=== PATIENT | male | born 1945 | race Caucasian/White ===

== ENCOUNTER 2022-03-11 10:50 | Inpatient (IN) ==
[2022-03-11 11:56] LABS: Hematocrit 46 % (42-52); Hemoglobin 15.1 g/dL (14.0-18.0); Mean Corpuscular HGB Conc 33 g/dL (31-36); Mean Corpuscular Hemoglobin 31 pg (27-31); Mean Corpuscular Volume 95 fL (80-94); Red Blood Count 4.84 10^6 /uL (4.18-5.48); Red Cell Distribution Width 16 % (10-15); White Blood Count 15.9 10^3/uL (3.5-10.8)
[2022-03-11 12:12] LABS: High Sens Troponin Baseline 25 pg/mL (<20)
[2022-03-11 12:40] LABS: ALT 59 U/L (7-52); AST 18 U/L (13-39); Albumin 3.3 g/dL (3.2-5.2); Albumin/Globulin Ratio 1.3 (1-3); Alkaline Phosphatase 54 U/L (35-149); Anion Gap 6 mmol/L (2-11); Blood Urea Nitrogen 72 mg/dL (6-24); CO2 Carbon Dioxide 27 mmol/L (22-32); Calcium 8.3 mg/dL (8.6-10.3); Chloride 111 mmol/L (101-111); Globulin 2.5 g/dL (2-4); Glucose 79 mg/dL (70-100); Potassium 4.3 mmol/L (3.5-5.0); Sodium 144 mmol/L (135-145); Total Protein 5.8 g/dL (6.4-8.9); eGFR CKD-EPI 38.8 (>60)
[2022-03-11 13:21] LABS: ABS Basophils 0.1 10^3/ul (0-0.2); ABS Lymphocytes 0.9 10^3/ul (1.0-4.8); ABS Monocytes 1.6 10^3/ul (0-0.8); ABS Neutrophils 13.3 10^3/ul (1.5-7.7); Eosinophil % 0.2 %; Lymphocyte % 5.9 %; Mean Platelet Volume 10.4 fL (7.4-10.4); Nucleated Red Blood Cells % 0.1; Platelet Count 93 10^3/uL (150-450)
[2022-03-11 13:26] LABS: High Sensitivity Troponin 1 Hr 26 pg/mL (<20)
[2022-03-11 16:31] LABS: C Reactive Protein < 1.00 mg/L (<8.01)
[2022-03-11] MEDS ORDERED: Bumetanide IV 0.25 MG/ML 4 ml VIAL (1 mg) SLOW PUSH ONE (17:47)
[2022-03-11 18:14] LABS: Creatine Kinase 107 U/L (10-223)
[2022-03-11 18:29] LABS: TSH Ultra Thyroid Stim Horm 0.05 mcIU/mL (0.34-5.60)
[2022-03-11 18:40] LABS: Folate > 20.00 ng/mL (5.90-24.80)
[2022-03-11 18:41] LABS: Vitamin B12 666 pg/mL (180-914)
[2022-03-11 19:44] LABS: Urine Appearance Cloudy; Urine Bilirubin Negative (Negative); Urine Blood 1+ (Negative); Urine Color Yellow; Urine Glucose Negative (Negative); Urine Ketones Negative (Negative); Urine Nitrite Negative (Negative); Urine Protein 1+(30 mg/dL) (Negative); Urine Specific Gravity 1.014 (1.002-1.030); Urine Urobilinogen Negative (Negative)
[2022-03-11 19:57] LABS: UR Microalbumin (mg/L) 138.2 mg/L; Urine Creatinine 64.24 mg/dL; Urine Microalbumin/Creatinine 215.1 mcg/mg (<31)
[2022-03-11 19:58] LABS: Urine Bacteria 1+ (Absent); Urine Red Blood Cell Trace(0-2/hpf) (Absent); Urine White Blood Cell Trace(0-5/hpf) (Absent)
[2022-03-11 21:34] LABS: % Iron Saturation 46 % (15-55); Iron 124 ug/dL (50-212); Total Iron Binding Capacity 267 mcg/dL (250-450); Transferrin 191 mg/dL (203-362); Unsaturated Iron Binding 143 ug/dL
[2022-03-11 22:01] LABS: Ferritin 287.3 ng/mL (24-336)
[2022-03-11] MEDS: CMCS: Budesonide 3 mg CAP (NF) PO SCH (23:07)
[2022-03-11] MEDS: Mesalamine RECTAL SUSP 4 GM/60 ML RECTAL.SUS PR SCH (23:08)
[2022-03-11] MEDS: Enoxaparin 40 MG/0.4 ML SYR SUBCUT SCH ×2 (23:08→23:10)
[2022-03-11] MEDS: MESALAMINE 0.375 GM PO SCH (23:08)
[2022-03-11 23:36] LABS: Calcium 8.3 mg/dL (8.6-10.3); Potassium 4.2 mmol/L (3.5-5.0)
[2022-03-11 23:42] LABS: eGFR CKD-EPI 41.9 (>60)
[2022-03-12 06:31] LABS: ABS Lymphocytes 0.2 10^3/ul (1.0-4.8); ABS Monocytes 1.4 10^3/ul (0-0.8); ABS Neutrophils 12.1 10^3/ul (1.5-7.7); Eosinophil % 0.3 %; Hematocrit 41 % (42-52); Hemoglobin 13.9 g/dL (14.0-18.0); Lymphocyte % 1.7 %; Mean Corpuscular HGB Conc 34 g/dL (31-36); Mean Corpuscular Hemoglobin 31 pg (27-31); Mean Corpuscular Volume 92 fL (80-94); Nucleated Red Blood Cells % 0.1; Platelet Count 80 10^3/uL (150-450); Red Blood Count 4.43 10^6 /uL (4.18-5.48); Red Cell Distribution Width 16 % (10-15); White Blood Count 13.7 10^3/uL (3.5-10.8)
[2022-03-12 06:44] LABS: Albumin 3.2 g/dL (3.2-5.2); Albumin/Globulin Ratio 1.4 (1-3); C Reactive Protein 3.87 mg/L (<8.01); Calcium 8.1 mg/dL (8.6-10.3); Globulin 2.3 g/dL (2-4); Total Bilirubin 1.2 mg/dL (0.2-1.0); Total Protein 5.5 g/dL (6.4-8.9); eGFR CKD-EPI 39.6 (>60)
[2022-03-12 06:59] LABS: TSH Ultra Thyroid Stim Horm 0.09 mcIU/mL (0.34-5.60)
[2022-03-12 07:01] LABS: Free T4 1.46 ng/dL (0.61-1.12)
[2022-03-12] MEDS ORDERED: Bumetanide IV 0.25 MG/ML 4 ml VIAL (1 mg) SLOW PUSH SCH (08:30)
[2022-03-12] MEDS ORDERED: Iron Sucrose 200 MG in NS 0.9% 100 ml BAG 100 ML IVPB SCH (09:00)
[2022-03-12] MEDS ORDERED: NF: DAPAGLIFLOZIN 5 MG TAB (NF) PO SCH (09:00)
[2022-03-12] MEDS: CMCS: Budesonide 3 mg CAP (NF) PO SCH ×2 (09:45→20:01)
[2022-03-12] MEDS: DOXYCYCLINE HYCLATE 50 MG PO SCH (09:52)
[2022-03-12] MEDS: MESALAMINE 0.375 GM PO SCH ×2 (09:52→20:03)
[2022-03-12] MEDS ORDERED: Furosemide 100 mg/10 ml IV 100 MG in NS 0.9% 100 ml BAG 90 ML IV SCH (11:00)
[2022-03-12] MEDS ORDERED: Sulfur Hexaflouride MICROSPHR 25 MG VIAL ONE (13:46)
[2022-03-12] MEDS ORDERED: Bumetanide IV 0.25 MG/ML 4 ml VIAL (1 mg) IV SLOW PU SCH (14:30)
[2022-03-12] MEDS: Mesalamine RECTAL SUSP 4 GM/60 ML RECTAL.SUS PR SCH (20:03)
[2022-03-12] MEDS: Enoxaparin 40 MG/0.4 ML SYR SUBCUT SCH (20:03)
[2022-03-13 05:57] LABS: Hematocrit 42 % (42-52); Mean Corpuscular HGB Conc 33 g/dL (31-36); Mean Corpuscular Hemoglobin 31 pg (27-31); Mean Corpuscular Volume 94 fL (80-94); Mean Platelet Volume 10.7 fL (7.4-10.4); Platelet Count 79 10^3/uL (150-450); Red Blood Count 4.46 10^6 /uL (4.18-5.48); Red Cell Distribution Width 16 % (10-15)
[2022-03-13 06:10] LABS: Calcium 8.2 mg/dL (8.6-10.3); Magnesium 2.4 mg/dL (1.9-2.7); Potassium 3.9 mmol/L (3.5-5.0); eGFR CKD-EPI 39.1 (>60)
[2022-03-13] MEDS: CMCS: Budesonide 3 mg CAP (NF) PO SCH (09:43)
[2022-03-13] MEDS: MESALAMINE 0.375 GM PO SCH (09:44)
[2022-03-13] MEDS: DOXYCYCLINE HYCLATE 50 MG PO SCH (09:45)
[2022-03-13 15:42] VITALS: BP 103/61
== END 2022-03-13 16:10 | disposition home health service (06) | DRG 291 ==
LOC: ED 10:50 → EDHOLD 10:50 → SUATTDRO 16:06 → MED 22:50
PROVIDERS: ADMIT Hospitalist; ATTEND Hospitalist

== ENCOUNTER 2023-04-21 14:01 | Inpatient (IN) ==
[2023-04-21] MEDS ORDERED: Vancomycin 1,000 MG in NS 0.9% 250 ml 250 ML IVPB ONE (14:39)
[2023-04-21] MEDS: Piperacillin/Tazobac 3.375 BAG 3.375 GM/100 ML BAG IV ONE (15:06)
[2023-04-21 15:23] LABS: ABS Lymphocytes 0.6 10^3/uL (1.0-4.8); ABS Monocytes 0.7 10^3/uL (0.0-1.1); ABS Neutrophils 8.2 10^3/uL (1.5-7.6); ABS Nucleated RBC 0.01 10^3/ul; Eosinophil % 0.1 %; Hemoglobin 13.4 g/dL (13.2-16.3); Lymphocyte % 6.2 %; Mean Corpuscular Hemoglobin 30.5 pg (27-33); Mean Corpuscular Hgb Conc 32.7 g/dL (31-36); Mean Corpuscular Volume 93.3 fL (80-97); Mean Platelet Volume 9.5 fL (7.5-11.2); Nucleated Red Blood Cells % 0.1 %/100WBC (0.0-0.8); Platelet Count 113 10^3/uL (150-450); Red Blood Count 4.39 10^6/uL (4.06-5.63); Red Cell Distribution Width 16.5 % (12-17); White Blood Count 9.5 10^3/uL (3.6-10.2)
[2023-04-21 15:36] LABS: Activated Partial Thrombo Time 36.5 seconds (26.0-38.0); INR 2.26 (0.83-1.13)
[2023-04-21 15:44] LABS: Albumin 3.4 g/dL (3.2-5.2); Albumin/Globulin Ratio 1.3 (1-3); C Reactive Protein 199.34 mg/L (<8.01); Calcium 8.6 mg/dL (8.6-10.3); Creatinine, Serum 3.43 mg/dL (0.67-1.17); Globulin 2.7 g/dL (2-4); Potassium 4.5 mmol/L (3.5-5.0); Total Protein 6.1 g/dL (6.4-8.9); eGFR CKD-EPI 17.4 (>60)
[2023-04-21] MEDS: Vancomycin 1,750 MG in NS 0.9% 500 ml BAG 500 ML IVPB ONE (16:54)
[2023-04-21] MEDS: Furosemide 40 mg/4 ml IV VIAL IV ONE (17:02)
[2023-04-21 17:33] LABS: High Sensitivity Troponin 1 Hr 19 pg/mL (<20)
[2023-04-21 18:05] LABS: Urine Appearance Extra Turbid; Urine Color Dark-Brown; Urine Specific Gravity 1.015 (1.002-1.030)
[2023-04-21 18:07] LABS: Urine Bacteria Absent /HPF (Absent); Urine Red Blood Cell 3+(>10/hpf) /HPF (0-Trace); Urine White Blood Cell 3+(>20/hpf) /HPF (0-Trace)
[2023-04-21] MEDS ORDERED: Vancomycin per Pharmacy 1 EA NOTE FOLLOW UP SCH (22:00)
[2023-04-21] MEDS ORDERED: Cefepime ADVAN 1 GM in NS 0.9% 50 ML 50 ML IVPB SCH (22:00)
[2023-04-21] MEDS: Furosemide 40 mg/4 ml IV VIAL IV SLOW PU ONE (22:19)
[2023-04-21] MEDS: Cefepime 1 GM in Dextrose 1 GM/50 ML BAG IV SCH (22:21)
[2023-04-22] MEDS: Multivitamins/Minerals TAB PO SCH (08:15)
[2023-04-22] MEDS: Cholecalciferol (VIT D3) 1,000 unit TAB PO SCH (08:16)
[2023-04-22] MEDS: Calcium Polycarbophil 625mg TB PO SCH (08:16)
[2023-04-22] MEDS: PTO: Mesalamine 0.375 GM CAP (NF) PO SCH (08:32)
[2023-04-22 08:38] LABS: ABS Lymphocytes 0.4 10^3/uL (1.0-4.8); ABS Monocytes 0.7 10^3/uL (0.0-1.1); ABS Neutrophils 8.5 10^3/uL (1.5-7.6); ABS Nucleated RBC 0.05 10^3/ul; Eosinophil % 0.2 %; Hematocrit 37.1 % (38-53); Hemoglobin 12.3 g/dL (13.2-16.3); Lymphocyte % 4.5 %; Mean Corpuscular Hemoglobin 31.1 pg (27-33); Mean Corpuscular Hgb Conc 33.1 g/dL (31-36); Mean Platelet Volume 9.5 fL (7.5-11.2); Nucleated Red Blood Cells % 0.5 %/100WBC (0.0-0.8); Platelet Count 108 10^3/uL (150-450); Red Blood Count 3.95 10^6/uL (4.06-5.63); Red Cell Distribution Width 17.1 % (12-17); White Blood Count 9.7 10^3/uL (3.6-10.2)
[2023-04-22 08:56] LABS: Calcium 8.2 mg/dL (8.6-10.3); Creatinine, Serum 3.53 mg/dL (0.67-1.17); Magnesium 2.1 mg/dL (1.9-2.7); Potassium 4.6 mmol/L (3.5-5.0); Vancomycin Random 13.5 mcg/mL; eGFR CKD-EPI 16.9 (>60)
[2023-04-22] MEDS: Furosemide 40 mg/4 ml IV VIAL IV SLOW PU SCH (09:21)
[2023-04-22] MEDS: Vancomycin Random Level NOTE FOLLOW UP ONE (10:44)
[2023-04-22] MEDS: Cefepime 1 GM in Dextrose 1 GM/50 ML BAG IV SCH (22:16)
[2023-04-23 01:06] LABS: Calcium 7.9 mg/dL (8.6-10.3); Creatinine, Serum 3.41 mg/dL (0.67-1.17); Magnesium 2.1 mg/dL (1.9-2.7); Potassium 3.8 mmol/L (3.5-5.0); eGFR CKD-EPI 17.6 (>60)
[2023-04-23] MEDS: Magnesium Sulfate 2 gm BAG 2 GM/50 ML BAG IVPB ONE (01:19)
[2023-04-23 05:44] LABS: Hematocrit 35.7 % (38-53); Hemoglobin 11.9 g/dL (13.2-16.3); Mean Corpuscular Hemoglobin 31.1 pg (27-33); Mean Corpuscular Hgb Conc 33.4 g/dL (31-36); Mean Corpuscular Volume 93.2 fL (80-97); Mean Platelet Volume 9.5 fL (7.5-11.2); Platelet Count 114 10^3/uL (150-450); Red Blood Count 3.83 10^6/uL (4.06-5.63); Red Cell Distribution Width 16.7 % (12-17); White Blood Count 10.1 10^3/uL (3.6-10.2)
[2023-04-23 06:24] LABS: Calcium 8.2 mg/dL (8.6-10.3); Creatinine, Serum 3.24 mg/dL (0.67-1.17); Magnesium 2.7 mg/dL (1.9-2.7); Potassium 3.8 mmol/L (3.5-5.0); eGFR CKD-EPI 18.7 (>60)
[2023-04-23] MEDS: Potassium Chlor 20 meq TAB.ER PO ONE (09:32)
[2023-04-23] MEDS ORDERED: Sulfur Hexaflouride MICROSPHR 25 MG VIAL ONE (10:31)
[2023-04-23 11:33] LABS: ABS Basophils 0.1 10^3/uL (0.0-0.1); ABS Eosinophils 0.1 10^3/uL (0.0-0.5); ABS Lymphocytes 0.4 10^3/uL (1.0-4.8); ABS Monocytes 0.7 10^3/uL (0.0-1.1); ABS Neutrophils 8.1 10^3/uL (1.5-7.6); ABS Nucleated RBC 0.01 10^3/ul; Eosinophil % 0.9 %; Hematocrit 35.9 % (38-53); Lymphocyte % 4.4 %; Mean Corpuscular Hemoglobin 31.1 pg (27-33); Mean Corpuscular Hgb Conc 33.3 g/dL (31-36); Mean Corpuscular Volume 93.6 fL (80-97); Mean Platelet Volume 9.3 fL (7.5-11.2); Nucleated Red Blood Cells % 0.1 %/100WBC (0.0-0.8); Platelet Count 110 10^3/uL (150-450); Red Blood Count 3.84 10^6/uL (4.06-5.63); White Blood Count 9.5 10^3/uL (3.6-10.2)
[2023-04-23 12:02] LABS: Creatinine, Serum 3.22 mg/dL (0.67-1.17); eGFR CKD-EPI 18.8 (>60)
[2023-04-23] MEDS: Heparin DRIP 25,000 UNITS BAG 25,000 UNITS/250 ML BAG IV SCH (12:34)
[2023-04-23] MEDS: Heparin 5000 UNITS/ML 1 mL VIAL IV SCH (12:37)
[2023-04-23] MEDS ORDERED: Vancomycin 1,250 MG IV x ONCE IVPB ONE (16:00)
[2023-04-23] MEDS: Calcium Polycarbophil 625mg TB PO SCH (18:44)
[2023-04-24 04:16] LABS: Anion Gap 9 mmol/L (2-16); Blood Urea Nitrogen 61 mg/dL (6-24); CO2 Carbon Dioxide 25 mmol/L (22-32); Calcium 8.2 mg/dL (8.6-10.3); Chloride 102 mmol/L (101-111); Creatinine, Serum 2.92 mg/dL (0.67-1.17); Glucose 90 mg/dL (70-100); Magnesium 2.5 mg/dL (1.9-2.7); Potassium 4.5 mmol/L (3.5-5.0); Sodium 136 mmol/L (135-145); eGFR CKD-EPI 21.2 (>60)
[2023-04-24 04:18] LABS: CRP High Sensitivity > 80.00 mg/L (<2.00)
[2023-04-24 04:24] LABS: Hematocrit 36.7 % (38-53); Hemoglobin 12.3 g/dL (13.2-16.3); Mean Corpuscular Hgb Conc 33.6 g/dL (31-36); Mean Corpuscular Volume 92.2 fL (80-97); Mean Platelet Volume 9.7 fL (7.5-11.2); Platelet Count 121 10^3/uL (150-450); Red Blood Count 3.98 10^6/uL (4.06-5.63); Red Cell Distribution Width 16.9 % (12-17)
[2023-04-24 07:10] LABS: C Reactive Protein 281.65 mg/L (<8.01)
[2023-04-24] MEDS: Acetaminophen IV 1 GM/100ML 1,000 MG/100 ML BAG IV PRN (13:23)
[2023-04-24] MEDS: Multivitamins/Minerals TAB PO SCH (13:24)
[2023-04-24] MEDS: Lactated Ringers 1000 ml BAG 1,000 ML IV SCH (14:46)
[2023-04-24] MEDS: ceFAZolin 1 GM ADVAN 1 GM in NS 0.9% 50 ML 50 ML IVPB SCH (20:45)
[2023-04-25 02:22] LABS: Hematocrit 34.6 % (38-53); Hemoglobin 11.5 g/dL (13.2-16.3)
[2023-04-25 06:11] LABS: Hemoglobin 11.5 g/dL (13.2-16.3); Mean Corpuscular Hemoglobin 31.1 pg (27-33); Mean Corpuscular Hgb Conc 33.9 g/dL (31-36); Mean Corpuscular Volume 91.7 fL (80-97); Mean Platelet Volume 9.1 fL (7.5-11.2); Platelet Count 112 10^3/uL (150-450); Red Blood Count 3.71 10^6/uL (4.06-5.63); Red Cell Distribution Width 16.5 % (12-17); White Blood Count 5.8 10^3/uL (3.6-10.2)
[2023-04-25 07:32] LABS: C Reactive Protein 177.8 mg/L (<8.01); Calcium 7.9 mg/dL (8.6-10.3); Creatinine, Serum 2.63 mg/dL (0.67-1.17); Potassium 3.9 mmol/L (3.5-5.0)
[2023-04-25 07:33] LABS: Magnesium 2.3 mg/dL (1.9-2.7)
[2023-04-25] MEDS ORDERED: Polyethylene Glycol 3350 17 GM PACKET PO PRN (11:46)
[2023-04-25] MEDS: Enoxaparin 100 MG/ML SYR SUBCUT SCH (17:43)
[2023-04-25] MEDS: Furosemide 40 mg/4 ml IV VIAL IV ONE (18:27)
[2023-04-26 06:16] LABS: C Reactive Protein 119.66 mg/L (<8.01); Calcium 8.4 mg/dL (8.6-10.3); Creatinine, Serum 2.55 mg/dL (0.67-1.17); Magnesium 2.2 mg/dL (1.9-2.7); Potassium 3.9 mmol/L (3.5-5.0); eGFR CKD-EPI 24.9 (>60)
[2023-04-26 06:20] LABS: Hematocrit 34.9 % (38-53); Hemoglobin 11.6 g/dL (13.2-16.3); Mean Corpuscular Hgb Conc 33.3 g/dL (31-36); Mean Corpuscular Volume 92.9 fL (80-97); Platelet Count 121 10^3/uL (150-450); Red Blood Count 3.75 10^6/uL (4.06-5.63); Red Cell Distribution Width 16.8 % (12-17); White Blood Count 4.8 10^3/uL (3.6-10.2)
[2023-04-26 06:39] LABS: ABS Eosinophils 0.1 10^3/uL (0.0-0.5); ABS Lymphocytes 0.7 10^3/uL (1.0-4.8); ABS Monocytes 0.7 10^3/uL (0.0-1.1); ABS Neutrophils 3.3 10^3/uL (1.5-7.6); ABS Nucleated RBC 0.01 10^3/ul; Eosinophil % 1.3 %; Lymphocyte % 14.6 %; Nucleated Red Blood Cells % 0.2 %/100WBC (0.0-0.8)
[2023-04-26] MEDS: Furosemide 40 mg/4 ml IV VIAL IV ONE (10:30)
[2023-04-26] MEDS: CMCS: Budesonide 3 mg CAP (NF) PO SCH (18:37)
[2023-04-27 06:59] LABS: Hematocrit 37.5 % (38-53); Hemoglobin 12.4 g/dL (13.2-16.3); Mean Corpuscular Hemoglobin 30.8 pg (27-33); Mean Corpuscular Hgb Conc 33.2 g/dL (31-36); Mean Corpuscular Volume 92.7 fL (80-97); Mean Platelet Volume 8.9 fL (7.5-11.2); Platelet Count 129 10^3/uL (150-450); Red Blood Count 4.04 10^6/uL (4.06-5.63); Red Cell Distribution Width 16.7 % (12-17); White Blood Count 4.7 10^3/uL (3.6-10.2)
[2023-04-27 07:34] LABS: Calcium 8.5 mg/dL (8.6-10.3); Creatinine, Serum 2.52 mg/dL (0.67-1.17); Potassium 4.3 mmol/L (3.5-5.0); eGFR CKD-EPI 25.3 (>60)
[2023-04-27] MEDS: Furosemide 40 mg/4 ml IV VIAL IV SLOW PU ONE (12:41)
[2023-04-27] MEDS: Polyethylene Glycol 3350 17 GM PACKET PO SCH (12:41)
[2023-04-27] MEDS: Senna TAB 8.6 mg TAB PO SCH (22:29)
[2023-04-28 06:35] LABS: Calcium 8.4 mg/dL (8.6-10.3); Creatinine, Serum 2.61 mg/dL (0.67-1.17); Potassium 3.9 mmol/L (3.5-5.0); eGFR CKD-EPI 24.2 (>60)
[2023-04-29 05:53] LABS: Calcium 8.5 mg/dL (8.6-10.3); Creatinine, Serum 2.76 mg/dL (0.67-1.17); Magnesium 1.9 mg/dL (1.9-2.7); eGFR CKD-EPI 22.6 (>60)
[2023-04-29] MEDS: Magnesium Sulfate 2 gm BAG 2 GM/50 ML BAG IVPB ONE (09:26)
[2023-04-29 12:03] LABS: Albumin 2.8 g/dL (3.2-5.2); Globulin 2.7 g/dL (2-4); Total Bilirubin 0.4 mg/dL (0.2-1.0); Total Protein 5.5 g/dL (6.4-8.9)
[2023-04-29] MEDS: Lactated Ringers 1000 ml BAG 1,000 ML IV SCH (16:52)
[2023-04-30 06:53] LABS: Calcium 8.2 mg/dL (8.6-10.3); Creatinine, Serum 2.63 mg/dL (0.67-1.17); Potassium 3.8 mmol/L (3.5-5.0)
[2023-04-30 08:38] LABS: Magnesium 2.4 mg/dL (1.9-2.7)
[2023-04-30] MEDS: Potassium Chlor 20 meq TAB.ER PO ONE (09:46)
[2023-04-30] MEDS: Lactated Ringers 1000 ml BAG 1,000 ML IV SCH (16:10)
[2023-05-01 05:38] LABS: Calcium 8.2 mg/dL (8.6-10.3); Creatinine, Serum 2.32 mg/dL (0.67-1.17); eGFR CKD-EPI 27.9 (>60)
[2023-05-01 10:34] LABS: Hematocrit 32.8 % (38-53); Hemoglobin 10.8 g/dL (13.2-16.3); Mean Corpuscular Hemoglobin 30.5 pg (27-33); Mean Corpuscular Hgb Conc 32.9 g/dL (31-36); Mean Corpuscular Volume 92.7 fL (80-97); Mean Platelet Volume 9.4 fL (7.5-11.2); Platelet Count 117 10^3/uL (150-450); Red Blood Count 3.53 10^6/uL (4.06-5.63); Red Cell Distribution Width 16.3 % (12-17); White Blood Count 5.2 10^3/uL (3.6-10.2)
[2023-05-01 12:10] LABS: ABS Lymphocytes 0.8 10^3/uL (1.0-4.8); ABS Monocytes 0.4 10^3/uL (0.0-1.1); ABS Neutrophils 3.9 10^3/uL (1.5-7.6); ABS Nucleated RBC 0.03 10^3/ul; Eosinophil % 0.8 %; Lymphocyte % 15.5 %; Nucleated Red Blood Cells % 0.5 %/100WBC (0.0-0.8); RBC Morphology Normal (Normal)
[2023-05-02 05:11] LABS: ABS Monocytes 0.4 10^3/uL (0.0-1.1); ABS Neutrophils 3.5 10^3/uL (1.5-7.6); ABS Nucleated RBC 0.01 10^3/ul; Eosinophil % 0.8 %; Hematocrit 32.7 % (38-53); Hemoglobin 10.7 g/dL (13.2-16.3); Lymphocyte % 19.7 %; Mean Corpuscular Hemoglobin 30.6 pg (27-33); Mean Corpuscular Hgb Conc 32.6 g/dL (31-36); Mean Corpuscular Volume 93.9 fL (80-97); Mean Platelet Volume 9.1 fL (7.5-11.2); Nucleated Red Blood Cells % 0.3 %/100WBC (0.0-0.8); Platelet Count 130 10^3/uL (150-450); Red Blood Count 3.48 10^6/uL (4.06-5.63); Red Cell Distribution Width 16.8 % (12-17)
[2023-05-02 05:54] LABS: Anion Gap 10 mmol/L (2-16); Blood Urea Nitrogen 34 mg/dL (6-24); CO2 Carbon Dioxide 19 mmol/L (22-32); Calcium 8.2 mg/dL (8.6-10.3); Chloride 111 mmol/L (101-111); Creatinine, Serum 2.23 mg/dL (0.67-1.17); Glucose 72 mg/dL (70-100); Sodium 140 mmol/L (135-145); eGFR CKD-EPI 29.2 (>60)
[2023-05-02] MEDS ORDERED: Heparin 5000 UNITS/ML 1 mL VIAL IV SCH (12:00)
[2023-05-02] MEDS: Enoxaparin 100 MG/ML SYR SUBCUT SCH (12:18)
[2023-05-02] MEDS: Heparin DRIP 25,000 UNITS BAG 25,000 UNITS/250 ML BAG IV SCH (13:30)
[2023-05-02] MEDS: Pantoprazole VIAL 40 MG VIAL IV SCH (13:31)
[2023-05-02 23:16] LABS: Hematocrit 31.1 % (38-53); Hemoglobin 10.4 g/dL (13.2-16.3)
[2023-05-03 06:03] LABS: Hematocrit 31.8 % (38-53); Hemoglobin 10.6 g/dL (13.2-16.3); Mean Corpuscular Hemoglobin 30.8 pg (27-33); Mean Corpuscular Hgb Conc 33.2 g/dL (31-36); Mean Corpuscular Volume 92.6 fL (80-97); Mean Platelet Volume 8.9 fL (7.5-11.2); Platelet Count 145 10^3/uL (150-450); Red Blood Count 3.43 10^6/uL (4.06-5.63); Red Cell Distribution Width 16.7 % (12-17); White Blood Count 4.9 10^3/uL (3.6-10.2)
[2023-05-03 06:35] LABS: ABS Lymphocytes 0.9 10^3/uL (1.0-4.8); ABS Monocytes 0.4 10^3/uL (0.0-1.1); ABS Neutrophils 3.6 10^3/uL (1.5-7.6); Eosinophil % 0.6 %; Lymphocyte % 18.8 %; Nucleated Red Blood Cells % 0.1 %/100WBC (0.0-0.8)
[2023-05-03 07:56] LABS: Calcium 8.3 mg/dL (8.6-10.3); Creatinine, Serum 2.3 mg/dL (0.67-1.17); eGFR CKD-EPI 28.2 (>60)
[2023-05-03] MEDS ORDERED: Polyethylene Glycol 3350 17 GM PACKET PO PRN (14:54)
[2023-05-03 16:38] LABS: Ferritin 255.1 ng/mL (24-336)
[2023-05-03] MEDS: Furosemide 20 mg/2 ml IV VIAL IV ONE (20:36)
[2023-05-03] MEDS: Bumetanide IV 0.25 MG/ML 4 ml VIAL (1 mg) IV SLOW PU ONE (23:44)
[2023-05-04 04:53] LABS: Calcium 8.2 mg/dL (8.6-10.3); Creatinine, Serum 2.33 mg/dL (0.67-1.17); Potassium 4.1 mmol/L (3.5-5.0); eGFR CKD-EPI 27.7 (>60)
[2023-05-04 05:00] LABS: ABS Lymphocytes 0.9 10^3/uL (1.0-4.8); ABS Monocytes 0.4 10^3/uL (0.0-1.1); ABS Neutrophils 3.4 10^3/uL (1.5-7.6); ABS Nucleated RBC 0.03 10^3/ul; Eosinophil % 0.7 %; Hematocrit 32.3 % (38-53); Hemoglobin 10.4 g/dL (13.2-16.3); Mean Corpuscular Hemoglobin 30.8 pg (27-33); Mean Corpuscular Volume 96.3 fL (80-97); Nucleated Red Blood Cells % 0.7 %/100WBC (0.0-0.8); Platelet Count 164 10^3/uL (150-450); Red Blood Count 3.36 10^6/uL (4.06-5.63); Red Cell Distribution Width 17.4 % (12-17); White Blood Count 4.7 10^3/uL (3.6-10.2)
[2023-05-04] MEDS ORDERED: Lidocaine 2% PF 5 ML VIAL ONE (14:46)
[2023-05-05 06:20] LABS: ABS Eosinophils 0.1 10^3/uL (0.0-0.5); ABS Lymphocytes 0.9 10^3/uL (1.0-4.8); ABS Monocytes 0.6 10^3/uL (0.0-1.1); ABS Neutrophils 5.6 10^3/uL (1.5-7.6); ABS Nucleated RBC 0.01 10^3/ul; Eosinophil % 0.8 %; Hematocrit 32.9 % (38-53); Lymphocyte % 12.7 %; Mean Corpuscular Hemoglobin 30.7 pg (27-33); Mean Corpuscular Hgb Conc 33.5 g/dL (31-36); Mean Corpuscular Volume 91.8 fL (80-97); Mean Platelet Volume 8.9 fL (7.5-11.2); Nucleated Red Blood Cells % 0.1 %/100WBC (0.0-0.8); Platelet Count 175 10^3/uL (150-450); Red Blood Count 3.58 10^6/uL (4.06-5.63); Red Cell Distribution Width 16.4 % (12-17); White Blood Count 7.2 10^3/uL (3.6-10.2)
[2023-05-05 06:53] LABS: Calcium 8.3 mg/dL (8.6-10.3); Creatinine, Serum 2.33 mg/dL (0.67-1.17); Potassium 3.5 mmol/L (3.5-5.0); eGFR CKD-EPI 27.7 (>60)
[2023-05-06 06:20] LABS: Hematocrit 33.4 % (38-53); Hemoglobin 11.2 g/dL (13.2-16.3); Mean Corpuscular Hemoglobin 30.6 pg (27-33); Mean Corpuscular Hgb Conc 33.4 g/dL (31-36); Mean Corpuscular Volume 91.6 fL (80-97); Mean Platelet Volume 8.9 fL (7.5-11.2); Platelet Count 191 10^3/uL (150-450); Red Blood Count 3.65 10^6/uL (4.06-5.63); Red Cell Distribution Width 16.4 % (12-17); White Blood Count 5.3 10^3/uL (3.6-10.2)
[2023-05-06 07:28] LABS: Calcium 8.3 mg/dL (8.6-10.3); Creatinine, Serum 2.49 mg/dL (0.67-1.17); Potassium 3.7 mmol/L (3.5-5.0); eGFR CKD-EPI 25.6 (>60)
[2023-05-06 08:21] LABS: ABS Monocytes 0.6 10^3/uL (0.0-1.1); ABS Neutrophils 3.6 10^3/uL (1.5-7.6); ABS Nucleated RBC 0.01 10^3/ul; Eosinophil % 0.8 %; Lymphocyte % 18.6 %; Nucleated Red Blood Cells % 0.2 %/100WBC (0.0-0.8)
[2023-05-06 09:58] VITALS: BP 126/71
[2023-05-06] MEDS: Midazolam 10 mg/10 ml VIAL 1 mg/ml 10 ml VIAL (10 mg) IV SLOW PU ONE (12:22)
[2023-05-06] MEDS: fentaNYL 100 mcg/2 ml 50 MCG/ML VIAL IV SLOW PU ONE (12:22)
== END 2023-05-06 13:00 | DRG 299 ==
LOC: EDHOLD 14:01 → ED 14:01 → SUATTDRO 20:13 → MEDTELE 04-22 13:28 → SUATTDRO 04-23 09:41
PROVIDERS: ADMIT Student in an Organized Health Care Education/Training Program; ATTEND Student in an Organized Health Care Education/Training Program
PROC: O.GIEGD (2023-05-04 14:35)